=== PATIENT | female | born 1990 | race African-American/Black ===

== ENCOUNTER 2016-10-15 15:58 | Emergency (ER) | payer OTHER ==
[~2016-10-15] VITALS: Ht 152.4 cm; Wt 97.5 kg
[~2016-10-15 15:58] MED LIST: ACCUNEB SO1.25 MG/1; AMOXICILLIN 50500 MG PO; CHERACOL COUGH120 ML PO; CIPRO500 MG PO; DILAUDID 2 MG TA2 MG PO; FLAGYL500 MG PO; FLEXERIL PO; IBUPROFEN 200200 M1 PO; IBUPROFEN 800800 M1; IBUPROFEN 800800 M1 PO; IBUPROFEN 800800 MG PO; LAMICTAL100 MG PO; LEXAPRO 10 MG T10 M1 PO; MECLIZINE HCL25 M1 PO; MEDROL DOSPAK21 TAB PO; MIRENA; NEURONTIN 300300 M1 PO; NORCO 5-325 TA1 EACH PO; ONDANSETRON HCL4 M2 PO; PREDNISONE 20 M20 MG PO; PRENATAL; PROTONIX40 M2 PO; TESSALON PERLE100 MG; TRAMADOL 50 MG50 MG PO; TUSSIONEX PENN473 ML PO; ULTRAM 50MG TAB50 MG PO; VALIUM5 MG PO; WELLBUTRIN XL300 MG PO; XANAX XR1 MG PO; XOPENEX HFA15 GM INH; ZANTAC 150MG T150 MG PO; ZOFRAN ODT4 MG PO; ZOFRAN4 MG PO; ZOLOFT 50 MG TA50 M1 PO; magic mouthwash SWISH&SPIT
[2016-10-15] MEDS ORDERED: NORCO 5-325 TA1 EACH PO (17:22)
== END 2016-10-15 17:46 | disposition home or self-care (01) ==
LOC: ER 15:58
DX: S06.0X9A Concussion with loss of consciousness of unspecified duration, initial encounter (principal); S83.92XA Sprain of unspecified site of left knee, initial encounter; J45.909 Unspecified asthma, uncomplicated; F32.9 Major depressive disorder, single episode, unspecified; Z90.89 Acquired absence of other organs; Z88.5 Allergy status to narcotic agent; Z88.8 Allergy status to other drugs, medicaments and biological substances; F17.210 Nicotine dependence, cigarettes, uncomplicated; W50.0XXA Accidental hit or strike by another person, initial encounter; Y93.89 Activity, other specified; Y92.89 Other specified places as the place of occurrence of the external cause; Y99.9 Unspecified external cause status

== ENCOUNTER 2019-03-25 17:30 | Emergency (ER) | payer OTHER ==
[~2019-03-25] VITALS: Ht 152.4 cm; Wt 79.4 kg
[2019-03-25] MEDS ORDERED: CYMBALTA30 MG PO (17:50)
[2019-03-25] MEDS ORDERED: BUSPIRONE HCL15 MG PO (17:50)
[2019-03-25] MEDS ORDERED: FLEXERIL PO (17:51)
[2019-03-25] MEDS ORDERED: OLANZAPINE10 M1 PO (17:51)
[2019-03-25] MEDS ORDERED: PROBIOTIC1 EAC7 PO (17:52)
[2019-03-25] MEDS ORDERED: COLACE100 MG PO (17:52)
[2019-03-25] MEDS ORDERED: MELATONIN3 M1 PO (17:52)
[2019-03-25] MEDS ORDERED: MIRALAX119 GM PO (17:52)
[2019-03-25] MEDS ORDERED: PERIDEX15 ML PO (18:24)
[2019-03-25 18:38] VITALS: BP 116/81
== END 2019-03-25 18:49 | disposition home or self-care (01) ==
LOC: ER 17:30
DX: K08.89 Other specified disorders of teeth and supporting structures (principal); I10 Essential (primary) hypertension; J45.909 Unspecified asthma, uncomplicated; F32.9 Major depressive disorder, single episode, unspecified; F17.210 Nicotine dependence, cigarettes, uncomplicated; Z90.89 Acquired absence of other organs; Z98.890 Other specified postprocedural states; Z86.711 Personal history of pulmonary embolism; Z88.5 Allergy status to narcotic agent; Z88.8 Allergy status to other drugs, medicaments and biological substances